=== PATIENT | female | born 1985 | race Caucasian/White ===

== ENCOUNTER 2016-07-09 06:09 | Emergency (ER) | payer MEDICAID ==
[~2016-07-09] VITALS: Ht 160 cm; Wt 53.0 kg
[2016-07-09 06:10] VITALS: BP 147/67; PULSE 113; RESP 16; TEMP 98.1; O2SAT 98
--- NOTE | 2016-07-09 07:01 | RADRPT ---
EXAM DATE/TIME: 07/09/2016 06:52 [facility] COMPARISON: No previous studies available for comparison. INDICATIONS : Increasing right nontraumatic lower rib pain for four days. MEDICAL HISTORY : None. SURGICAL HISTORY : None. ENCOUNTER: Initial ACUITY: 4 - 6 days PAIN SCORE: 5/10 LOCATION: Right chest FINDINGS: A single view of the chest demonstrates the lungs to be symmetrically aerated without evidence of mas s, infiltrate or effusion. The cardiomediastinal contours are unremarkable. Osseous structures are intact. CONCLUSION: Normal examination. Kelvin Amaya Jr., MD on July 09, 2016 at 6:59 Board Certified Radiologist. This report was verified electronically.
[2016-07-09] MEDS ORDERED: SODIUM CHLORID 0.9% 500 ML INJ 500 ML IV ONE (07:30)
[2016-07-09] MEDS ORDERED: SODIUM CHLORIDE 0.9% FLUSH 10 ML FLUSH IVF PRN (07:30)
[2016-07-09] MEDS ORDERED: KETOROLAC TROMETHAMINE 30 MG/ML (IVP) VIAL IV PUSH ONE ×2 (07:30→09:45)
--- NOTE | 2016-07-09 07:37 | PD ---
HPI Chief Complaint: Pain: Acute or Chronic Time Seen by Provider: 07:23 Travel History International Travel<30 days: No Contact w/Intl Traveler<30days: No Traveled to known affect area: No History of Present Illness HPI Patient is a 30-year-old female who presents to emergency with complaints of right-sided rib pain for the past 4 days. She reports that 4 days ago, she began to have pain to her right ribs "out of no where." Patient reports the pain has been getting progressively worse over the past 4 days, reports that pain is worse with deep inspiration, patient reports that she can't take a deep breath, or persist she can cough as this exacerbates pain. Patient reports no chest pain with her symptoms though she does feel mildly short of breath as she cannot take a deep breath with the symptoms. Patient reports that nothing makes pain any better, she did try taking ibuprofen with no relief of symptoms. Patient denies fevers or chills. Patient denies taking any control pills, patient denies any recent trips or long travels or immobilization, denies history of PE or DVT. No family history of clotting disorder that she knows of. Patient reports positive smoking history, reports that she smokes 10 cigarettes per day as well as marijuana PFSH Past Medical History Depression: Yes Diminished Hearing: No Influenza Vaccination: No ?: Not LMP: 3-20-17 : 1 Para: 1 Past Surgical History Appendectomy: Yes Other Surgery: Yes (RIGHT MOONEY) Social History Alcohol Use: No Tobacco Use: No Substance Use: No Allergies-Medications (Allergen,Severity, Reaction): Coded Allergies: Amoxicillin (Verified Allergy, Severe, HIVES, ITCHING, 01/08/16) Bactrim (Verified Allergy, Severe, HIVES, ITCHING, 01/08/16) Sulfa (Verified Allergy, Severe, HIVES,ITCHING, 01/08/16) DEPO-PROVERA CONTRACEPTIVE (Verified Allergy, Mild, HIVES, 01/08/16) Penicillin (Verified Allergy, Mild, Hives, 01/08/16) Reported Meds & Prescriptions Reported Meds & Active Scripts Active Ibuprofen 600 Mg Tab 600 Mg PO Q6H PRN Review of Systems General / Constitutional: No: Fever, Chills Eyes: No: Visual changes HENT: No: Headaches Cardiovascular: Positive: Other (rib pain), No: Chest Pain or Discomfort Respiratory: Positive: Shortness of Breath Gastrointestinal: No: Nausea, Vomiting, Abdominal Pain Genitourinary: No: Dysuria Musculoskeletal: No: Pain Skin: No Rash Neurologic: No: Weakness Psychiatric: No: Depression Endocrine: No: Polydipsia Hematologic/Lymphatic: No: Easy Bruising Physical Exam Narrative GENERAL: No acute distress, nontoxic SKIN: Focused skin assessment warm/dry. HEAD: Atraumatic. Normocephalic. EYES: No injection or drainage. ENT: No nasal bleeding or discharge. Mucous membranes pink and moist. NECK: Trachea midline. No JVD. CARDIOVASCULAR: Regular rate and rhythm. No murmur appreciated. RESPIRATORY: No accessory muscle use. Clear to auscultation. Breath sounds equal bilaterally. GASTROINTESTINAL: Abdomen soft, non-tender, nondistended. Hepatic and splenic margins not palpable. MUSCULOSKELETAL: No obvious deformities. No clubbing. No cyanosis. No edema. NEUROLOGICAL: Awake and alert. Normal speech. PSYCHIATRIC: Appropriate mood and affect; insight and judgment normal. Data Data Last Documented VS Vital Signs Date Time Temp Pulse Resp B/P Pulse Ox O2 Delivery O2 Flow Rate FiO2 07/09/16 08:29 16 98 Room Air 07/09/16 06:10 98.1 113 147/67 Orders Chest, Single Ap (07/09/16 ) Electrocardiogram (07/09/16 07:30) Complete Blood Count With Diff (07/09/16 07:30) Comprehensive Metabolic Panel (07/09/16 07:30) D-Dimer (07/09/16 07:30) Prothrombin Time / Inr (Pt) (07/09/16 07:30) Act Partial Throm Time (Ptt) (07/09/16 07:30) Ecg Monitoring (07/09/16 07:30) Iv Access Insert/Monitor (07/09/16 07:30) Oximetry (07/09/16 07:30) Sodium Chloride 0.9% Flush (Ns Flush) (07/09/16 07:30) Sodium Chlorid 0.9% 500 Ml Inj (Ns 500 M (07/09/16 07:30) Ketorolac Inj (Toradol Inj) (07/09/16 07:30) Ed Urine Pregnancytest Poc (07/09/16 07:30) Ct Pulmonary Angiogram (07/09/16 09:14) Iohexol 350 Inj (Omnipaque 350 Inj) (07/09/16 09:32) Ketorolac Inj (Toradol Inj) (07/09/16 09:45) Labs Laboratory Tests Test 07/09/16 08:30 White Blood Count 7.0 TH/MM3 Red Blood Count 4.39 MIL/MM3 Hemoglobin 11.6 GM/DL Hematocrit 34.6 % Mean Corpuscular Volume 79.0 FL Mean Corpuscular Hemoglobin 26.5 PG Mean Corpuscular Hemoglobin 33.5 % Concent Red Cell Distribution Width 13.3 % Platelet Count 240 TH/MM3 Mean Platelet Volume 7.5 FL Neutrophils (%) (Auto) 49.8 % Lymphocytes (%) (Auto) 41.9 % Monocytes (%) (Auto) 7.1 % Eosinophils (%) (Auto) 0.6 % Basophils (%) (Auto) 0.6 % Neutrophils # (Auto) 3.5 TH/MM3 Lymphocytes # (Auto) 2.9 TH/MM3 Monocytes # (Auto) 0.5 TH/MM3 Eosinophils # (Auto) 0.0 TH/MM3 Basophils # (Auto) 0.0 TH/MM3 CBC Comment AUTO DIFF Differential Comment AUTO DIFF CONFIRMED Prothrombin Time 11.5 SEC Prothromb Time International 1.0 RATIO Ratio Activated Partial 34.7 SEC Thromboplast Time D-Dimer Quantitative (PE/DVT) 0.63 MG/L FEU Sodium Level 140 MEQ/L Potassium Level 3.5 MEQ/L Chloride Level 107 MEQ/L Carbon Dioxide Level 26.2 MEQ/L Anion Gap 7 MEQ/L Blood Urea Nitrogen 9 MG/DL Creatinine 0.78 MG/DL Estimat Glomerular Filtration 87 ML/MIN Rate Random Glucose 90 MG/DL Calcium Level 8.3 MG/DL Total Bilirubin 0.3 MG/DL Aspartate Amino Transf 23 U/L (AST/SGOT) Alanine Aminotransferase 40 U/L (ALT/SGPT) Alkaline Phosphatase 116 U/L Total Protein 6.5 GM/DL Albumin 3.0 GM/DL MDM Medical Decision Making Medical Screen Exam Complete: Yes Emergency Medical Condition: Yes Interpretation(s) EKG at 0745: NSR at 70bpm, qt/qtc: 403/424, no acute st or t wave changes Vital Signs Date Time Temp Pulse Resp B/P Pulse Ox O2 Delivery O2 Flow Rate FiO2 4/23/17 06:35 18 07/09/16 06:10 98.1 113 16 147/67 98 Last Impressions Chest X-Ray 07/09/16 0000 Signed Impressions: Service Date/Time: Saturday, July 09, 2016 06:52 - CONCLUSION: Normal examination. Kelvin Amaya Jr., MD Differential Diagnosis PE, pneumothorax, rib strain, pneumonia, electrolyte abnormality Narrative Course Patient is a 30-year-old female who presents to emergency room with complaints of right-sided rib pain for the past 4 days. She reports that symptoms have been progressively getting worse, reports symptoms are exacerbated by taking a deep breath or by coughing. Patient denies any fevers or chills. Patient denies any injury or trauma to her chest wall. Reports that this is the first time she has had these symptoms in the past. Patient is mildly tachycardic on evaluation, plan to obtain EKG, lab work including dimer to rule out pulmonary embolism, infection, electrolyte abnormality. We'll give IV fluids as well as Toradol for pain relief. Plan to monitor patient on cardiac cath lab radiology technologist. Laboratory Tests Test 07/09/16 08:30 White Blood Count 7.0 TH/MM3 (4.0-11.0) Red Blood Count 4.39 MIL/MM3 (4.00-5.30) Hemoglobin 11.6 GM/DL (11.6-15.3) Hematocrit 34.6 % (35.0-46.0) Mean Corpuscular Volume 79.0 FL (80.0-100.0) Mean Corpuscular Hemoglobin 26.5 PG (27.0-34.0) Mean Corpuscular Hemoglobin 33.5 % Concent (32.0-36.0) Red Cell Distribution Width 13.3 % (11.6-17.2) Platelet Count 240 TH/MM3 (150-450) Mean Platelet Volume 7.5 FL (7.0-11.0) Neutrophils (%) (Auto) 49.8 % (16.0-70.0) Lymphocytes (%) (Auto) 41.9 % (9.0-44.0) Monocytes (%) (Auto) 7.1 % (0.0-8.0) Eosinophils (%) (Auto) 0.6 % (0.0-4.0) Basophils (%) (Auto) 0.6 % (0.0-2.0) Neutrophils # (Auto) 3.5 TH/MM3 (1.8-7.7) Lymphocytes # (Auto) 2.9 TH/MM3 (1.0-4.8) Monocytes # (Auto) 0.5 TH/MM3 (0-0.9) Eosinophils # (Auto) 0.0 TH/MM3 (0-0.4) Basophils # (Auto) 0.0 TH/MM3 (0-0.2) CBC Comment AUTO DIFF Differential Comment AUTO DIFF CONFIRMED Prothrombin Time 11.5 SEC (9.8-11.6) Prothromb Time International 1.0 RATIO Ratio Activated Partial 34.7 SEC Thromboplast Time (24.3-30.1) D-Dimer Quantitative (PE/DVT) 0.63 MG/L FEU (0.00-0.50) Sodium Level 140 MEQ/L (136-145) Potassium Level 3.5 MEQ/L (3.5-5.1) Chloride Level 107 MEQ/L (98-107) Carbon Dioxide Level 26.2 MEQ/L (21.0-32.0) Anion Gap 7 MEQ/L (5-15) Blood Urea Nitrogen 9 MG/DL (7-18) Creatinine 0.78 MG/DL (0.50-1.00) Estimat Glomerular Filtration 87 ML/MIN (>89) Rate Random Glucose 90 MG/DL (74-106) Calcium Level 8.3 MG/DL (8.5-10.1) Total Bilirubin 0.3 MG/DL (0.2-1.0) Aspartate Amino Transf 23 U/L (15-37) (AST/SGOT) Alanine Aminotransferase 40 U/L (10-53) (ALT/SGPT) Alkaline Phosphatase 116 U/L (45-117) Total Protein 6.5 GM/DL (6.4-8.2) Albumin 3.0 GM/DL (3.4-5.0) Last Impressions Chest X-Ray 07/09/16 0000 Signed Impressions: Service Date/Time: Saturday, July 09, 2016 06:52 - CONCLUSION: Normal examination. Kelvin Amaya Jr., MD CT Pulmonary angio: Patient with no PE, a copy patient CT report was given to her to follow-up with. I reviewed all results of all labs and studies with patient in detail. Patient most likely with muscle strain. We'll have patient follow up with primary care doctor and return to emergency room as needed. Diagnosis Primary Impression: Rib pain on right side Patient Instructions: General Instructions Additional Instructions: Please follow-up with your primary care doctor in 2-3 days Return to the emergency room as needed Return to emergency room if symptoms worsen or progress Med/Other Pt SpecificInfo: Prescription(s) given Scripts Ibuprofen 600 Mg [id number] Mg PO Q6H PRN (Pain/Inflammation) #40 TAB Ref 0 Prov:Lucille Ruvalcaba DO 07/09/16 Disposition: 01 DISCHARGE HOME Condition: Stable Lucille Ruvalcaba DO Jul 09, 2016 07:37
[2016-07-09 08:29] VITALS: RESP 16; O2SAT 98
[2016-07-09 08:45] LABS: AUTOMATED NEUTROPHIL # 3.5 TH/MM3 (1.8-7.7); BASOPHIL % 0.6 % (0.0-2.0); EOSINOPHIL % 0.6 % (0.0-4.0); HEMATOCRIT 34.6 % (35.0-46.0); LYMPH % 41.9 % (9.0-44.0); LYMPHOCYTE # 2.9 TH/MM3 (1.0-4.8); MEAN CORPUSCULAR HEMOGLOBIN 26.5 PG (27.0-34.0); MEAN CORPUSCULAR HGB CONC 33.5 % (32.0-36.0); MONO % 7.1 % (0.0-8.0); NEUT % 49.8 % (16.0-70.0); PLATELET COUNT 240 TH/MM3 (150-450); RED BLOOD COUNT 4.39 MIL/MM3 (4.00-5.30); RED CELL DISTRIBUTION WIDTH 13.3 % (11.6-17.2)
[2016-07-09 08:49] LABS: HEMO FLAGS AUTO DIFF
[2016-07-09 09:01] LABS: APTT (PATIENT) 34.7 SEC (24.3-30.1); PROTHROMBIN TIME - PATIENT 11.5 SEC (9.8-11.6)
[2016-07-09 09:21] LABS: ANION GAP 7 MEQ/L (5-15); AST (GOT) 23 U/L (15-37); BICARBONATE 26.2 MEQ/L (21.0-32.0); BLOOD UREA NITROGEN 9 MG/DL (7-18); CHLORIDE 107 MEQ/L (98-107); GLOMERULAR FILTRATION RATE 87 ML/MIN (>89); POTASSIUM 3.5 MEQ/L (3.5-5.1); SODIUM (NA) 140 MEQ/L (136-145)
[2016-07-09 09:24] LABS: ALKALINE PHOSPHATASE 116 U/L (45-117); ALT (GPT) 40 U/L (10-53); TOTAL BILIRUBIN ADULT 0.3 MG/DL (0.2-1.0)
[2016-07-09 09:25] LABS: SCAN/DIFF AUTO DIFF CONFIRMED
[2016-07-09] MEDS ORDERED: IOHEXOL 350 MG/ML 10 ML VIAL (for RAD DIAG) IV ONE (09:32)
[2016-07-09] MEDS ORDERED: IBUP-232 PO (09:37)
--- NOTE | 2016-07-09 10:07 | RADRPT ---
EXAM DATE/TIME: 07/09/2016 09:31 [facility] COMPARISON: No previous studies available for comparison. INDICATIONS : Right chest wall pain for four days. IV CONTRAST: 75 cc Omnipaque 350 (iohexol) IV RADIATION DOSE: 20.33 CTDIvol (mGy) MEDICAL HISTORY : None SURGICAL HISTORY : Appendectomy. ENCOUNTER: Initial ACUITY: 4 - 6 days PAIN SCALE: 7/10 LOCATION: Right chest TECHNIQUE: Volumetric scanning of the chest was performed using a pulmonary embolism protocol MIP images were re constructed. Using automated exposure control and adjustment of the mA and/or kV according to patien t size, radiation dose was kept as low as reasonably achievable to obtain optimal diagnostic quality images. FINDINGS: PULMONARY ARTERIES: No filling defects are seen in the pulmonary arteries through the segmental level. LUNGS: There is minimal linear density at the bases bilaterally likely representing atelectasis. PLEURAE: There is no pleural thickening or pleural effusion. MEDIASTINUM: There is good visualization of the great vessels of the middle mediastinum. No evidence of mediastin al or hilar adenopathy/mass. MUSCULOSKELETAL: Within normal limits for patient age. MISCELLANEOUS: The visualized upper abdominal organs demonstrate no acute abnormality. CONCLUSION: No pulmonary embolus. Logan Barfield MD on July 09, 2016 at 10:04 Board Certified Radiologist. This report was verified electronically.
[2016-07-09 10:54] VITALS: BP 147/70; PULSE 95; RESP 18; O2SAT 100
--- NOTE | 2016-07-10 14:26 | EKG ---
Date Performed: 07/09/2016 Time Performed: 08:38:18 PTAGE: 30 years EKG: Sinus rhythm POSSIBLE RIGHT VENTRICULAR CONDUCTION DELAY BORDERLINE ECG NO PREVIOUS TRACING DOCTOR: Johny Mclaughlin Interpretating Date/Time 07/10/2016 14:22:28
== END 2016-07-09 11:30 | disposition home or self-care (01) ==
LOC: NEPC 06:09
DX: R07.81 Pleurodynia (principal); F17.210 Nicotine dependence, cigarettes, uncomplicated; R06.02 Shortness of breath
CPT/HCPCS: 71010; 71275; 80053; 84703; 85025; 85379; 85610; 85730; 93005; 96374; 96376; 99284; J1885; J7040; Q9967